=== PATIENT | female | born 1960 | race African-American/Black ===

== ENCOUNTER 2016-09-17 12:52 | Inpatient (IN) ==
[2016-09-17 13:28] LABS: Basophils % 0.4 % (0.0-0.8); Eosinophils % 0.1 % (0.00-10.9); Hematocrit 42.1 VOL% (35.7-47.0); Hemoglobin 14.1 GM/DL (12.0-16.0); Immature Granulocytes % 0.3 %; Immature Granulocytes Absolute 0.03 #; Lymphocytes # 1.1 10*3/uL (1.4-4.0); Lymphocytes % 11.2 % (21.3-54.2); Mean Corpuscular HGB Conc 33.5 GM/DL (32-36); Mean Corpuscular Hemoglobin 31 PG (27-34); Mean Corpuscular Volume 93.6 FL (87-102); Mean Platelet Volume 8.7 FL (9.6-12.0); Monocytes # 0.5 10*3/uL (0.11-0.8); Monocytes % 5.4 % (1.7-12.7); Neutrophils % 82.6 % (38.7-73.9); Platelet Count 206 T/CUMM (130-400); Red Cell Distribution Width 13.8 % (9.3-17.3); White Blood Count 9.7 T/CUMM (4-12)
--- NOTE | 2016-09-17 13:29 | CT Report ---
CT head/brain wo con Indication: Right-sided paralysis. CT BRAIN WITHOUT CONTRAST DLP: 998 mGy*cm Comparison: None. Date of admission: 09/17/2016. Technique: Axial noncontrast CT images of the brain were obtained. Findings: Focal hypodensity within the region of the left thalamus and loss of leyva-white junction of the left caudate nucleus and internal capsule noted. Cortical leyva-white junction is maintained. No acute hemorrhage. No mass or mass effect. Right basal ganglia structures are well maintained. Visualized sinuses are clear. No destructive bone lesion. Impression: Acute to early subacute infarct left caudate nucleus, internal capsule and left thalamus. No hemorrhage. No significant mass effect. Critical test results discussed with Dr. Ashton at 1325 hours today. PROCEDURE INTERPRETED AT [facility] DEPARTMENT OF RADIOLOGY Final Report Signed by: Morgan Beck M.D.
[2016-09-17] MEDS ORDERED: ENOXAPARIN 80 MG/0.8 ML SYRINGE SUBCUT STA (13:35)
[2016-09-17] MEDS ORDERED: ASPIRIN 300 MG SUPP RECTAL STA (13:35)
[2016-09-17 13:38] LABS: Apearance,Urine CLEAR (Clear); Bilirubin,Urine Negative (Negative); Blood, Urine Moderate mg/dL (Negative); Glucose,Urine (UA) Negative (Negative); Ketones,Urine Negative (Negative); Mucus,Urine Occasional /LPF (Occasional); Nitrite,Urine Negative (Negative); Protein,Urine Negative; RBC,Urine 23 /HPF (0-4); Squamous Epithelial Cell,Urine Occasional /HPF (0-10); Urine Color Yellow (Yellow); Urine Specific Gravity 1.015 (1.001-1.035); Urine Urobilinogen < 2.0 EU/DL (0.2-1.0); WBC,Urine 1 /HPF (0-6)
--- NOTE | 2016-09-17 13:38 | Emergency Department Note ---
Jermaine Sullivan Brittany, am scribing for, and in the presence of, Jaycob Ashton MD 13: 29. Daisha Sullivan James D, MD, personally performed the services described in this documentation, ascribed by Lara Dean in my presence, and it is both accurate and complete [id number] . Arrival - Arrival Chief Complaint: Neuro Stated Complaint: possible stroke ED Nursing Triage Note: reports disorientation and not moving right arm since he came home from work one hour ago. pt wont answer questions in triage. slurring speech. right side facial droop. glucose in triage is 79. Mode of Arrival: Wheelchair Limitations: No Limitations Source: Patient, Significant other, RN Notes Reviewed Time Seen by Provider: 09/17/16 13:15 - History of Present Illness HPI Narrative: This is a 56 y/o black female, who presents to the ED for further neurological evaluation. Her reports pt's Last Known Well Time was at 0800 this morning. He reports he returned this morning for lunch and found pt to be confused. Her states pt was able to make it to the front door. He states he noticed she had a shower while at home, but he is able to say what time this occurred. Her states pt walked to the car, but was weaker on the right side of the body. He states pt was talking to him on the way here, but the speech was slurred. No complaints/pain in the ED at this time. Pt denies a PMHx. Pt denies a surgical Hx. Pt denies a family medical Hx. Pt is a current every day smoker, but denies the use of alcohol and street drugs. Onset (ago): hour(s) (Started 0800 this orning) Consistency: constant Severity: severe Quality: other Date of Last Menstrual Period: menopause Allergies/Adverse Reactions: Allergies Allergy/AdvReac Type Severity Reaction Status Date / Time No Known Allergies Allergy Verified 09/17/16 13:10 Home Medications: Home Medications Medication Instructions Recorded Confirmed Type No Known Home Medications [No 09/17/16 09/17/16 History Known Home Medications] Review of System - Review of System 12 point system: reviewed and no additional remarkable complaints except as stated - Review of System Neurological: Present: weakness (Weakness to the right side of the body), confusion, other (Slurred Speech) Medical,Surgical,& Family Hx - Social History Smoking Status: Current every day smoker Exam Vital Signs: Vital Signs Temperature 97.6 F 09/17/16 12:55 Pulse Rate 72 09/17/16 12:55 Respiratory Rate 18 09/17/16 12:55 Blood Pressure 172/106 09/17/16 12:55 O2 Sat by Pulse Oximetry 96 09/17/16 12:55 GENERAL: This is a well-nourished well-developed black female acutely ill- appearing, in no apparent distress. VITAL SIGNS: Reviewed HEENT: Head is atraumatic and normocephalic. Pupils are equal round react to light. Extraocular movements are intact. Oropharynx is benign with moist mucous membranes. Gag reflex is present. NECK: Neck is soft and supple without tenderness. There are no masses. There is no lymphadenopathy. LUNGS: Lungs are clear to auscultation. Chest rises symmetrically. There is no chest wall tenderness. CV: Heart is regular rate and rhythm without murmurs rubs or gallops. ABDOMEN: Abdomen is soft, nontender to palpation. There are no abdominal abnormal masses palpated. There is no organomegaly. Bowel sounds are present and active. SKIN: Skin is warm and dry. No rash. EXTREMITIES: Patient has full range of motion without tenderness. There is no pedal edema. NEUROLOGIC: Arousable to vocal stimulus. Gaze preference to the left. Cranial nerves II through XII are intact with the exception of right facial weakness which is central. Motor is 5 over 5 in left arm and left leg, 0-1/5 in right arm and right leg. Babinski is present on the right. Deep tendon reflexes are 2+ to 3+ on right and 2+ on the left. Course Course Narrative: Discussed at length with the regarding TPA. Patient is not a TPA treatment candidate due to length of time between last known well time and onset of symptoms. - Consultations Consultation #1: Discussed with hospitalist. Patient will be admitted to their service. Time: 13:37 Consultation #2: Discussed with Dr. Inman. Time: 13:20 Results - Labs CBC & BMP: 09/17/16 13:16 09/17/16 13:16 Lab Results: I have reviewed the patients labs Labs: Laboratory Tests 09/17/16 09/17/16 09/17/16 13:16 13:16 13:16 Urine RBC 23 Urine Opiates Screen Negative Ur Barbiturates Screen Positive H Ur Phencyclidine Scrn Negative U Amphetamine/Methamph Negative U Benzodiazepines Scrn Negative U Cocaine Metab Screen Negative U Cannabinoids Screen Negative Serum Alcohol < 15 L - EKG EKG results: interpreted by ERMD - Impressions EKG: Normal sinus rhythm with rate of 72, normal ST-T waves, normal axis. 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 Case discussed with: patient's family Disposition: Still a Patient Condition: Guarded NIH Stroke Score - Stroke Score Initial Assessment Level of Consciousness: Drowsy Level of Consciousness Questions: Both Incorrect Level of Consciousness Commands: Obeys One Correctly Best Gaze: Forced Deviation Visual Gomez: No Visual Loss Facial Palsy: Complete Motor - Right Arm: No Effort Against Hoopa Motor - Left Arm: No Drift Motor - Right Leg: No Effort Against Hoopa Motor - Left Leg: No Drift Limb Ataxia: Absent Sensory (Pin Prick): Partial Loss Best Language: Mute Dysarthria: Near Unintelligible or Worse Extinction / Inattention (Neglect): Partial Neglect NIH Stroke Score: 22
[2016-09-17] MEDS ORDERED: ENOXAPARIN 80 MG/0.8 ML SYRINGE SUBCUT ONE (13:39)
[2016-09-17] MEDS ORDERED: ASPIRIN 300 MG SUPP RECTAL ONE (13:39)
[2016-09-17 13:41] LABS: INR 0.9; PT Patient Result 9.9 SECS; Partial Thromboplastin Time 27.6 SECS (0-40)
[2016-09-17 13:44] LABS: Barbiturates Screen,Urine Positive (Negative); Benzodiazepines Screen,Urine Negative (Negative); Cannabinoid Screen,Urine Negative (Negative); Opiate Screen,Urine Negative (Negative); Phencyclidine Screen,Urine Negative (Negative)
[2016-09-17 14:03] LABS: Alanine Aminotransferase 24 U/L (13-56); Albumin 3.9 G/DL (3.4-5.0); Alkaline Phosphatase 88 U/L (45-117); Aspartate Amino Transferase 22 U/L (0-37); Calcium 8.8 MG/DL (8.5-10.1); Total Protein 6.9 G/DL (6.4-8.3)
[2016-09-17 14:04] LABS: Blood Urea Nitrogen 11 MG/DL (7-18); Glucose 85 MG/DL (74-106); Osmolality,Calculated 289.4 MOS/KG (273-304); Potassium 4.3 MMOL/L (3.5-5.1); Sodium 147 MMOL/L (136-145); Troponin I Only < 0.015 NG/ML (0.00-0.045)
[2016-09-17] MEDS ORDERED: LABETALOL 20 MG/4 ML SYRINGE IV PRN (14:19)
--- NOTE | 2016-09-17 14:23 | EKG Report ---
Stationary ECG Study [facility] ER Test Date: 09/17/2016 2:20:34 PM Pat Name: AICHA ROLON Department: Room: Gender: F Sluice Tender: : 1960 Requested by: Jaycob Lau Order Number: [id number] Reading MD: BRIDGETT MONTERO Intervals [place] Rate: 72 P: -38 UT: 189 QRS: 63 QRSD: 87 T: 25 QT: 407 QTc: 431 Interpretive Statements SINUS RHYTHM NON-SPECIFIC ST-T ABNORMALITIES Electronically Signed On 09-18-16 12:19:15 CDT by BRIDGETT MONTERO [email or web address]
--- NOTE | 2016-09-17 14:40 | XRay Report ---
XR chest 1V portable Indication: Cardiomegaly. Chest one view: No comparison. The heart size and mediastinal contour are normal. The lungs and pleural spaces are clear. Bones are unremarkable. Impression: Negative chest. PROCEDURE INTERPRETED AT [facility] DEPARTMENT OF RADIOLOGY Final Report Signed by: Morgan Beck M.D.
[2016-09-17 14:54] LABS: Risk Ratio 3.44; VLDL CHOLESTEROL 27.4 MG/DL
--- NOTE | 2016-09-17 15:11 | Hospitalist History & Physical ---
Assessment and Plan (1) Left middle cerebral artery stroke Status: Acute Assessment and plan: MRI of brain and mra of head and neck, Consult Dr Inman, ASA, feeding tube, lipitor at night Current Visit: Yes (2) Hypertension Status: Acute Assessment and plan: monitor blood pressure Current Visit: Yes (3) ROSS (obstructive sleep apnea) Status: Acute Assessment and plan: Dr. Jimenez, makes her prone to more arrhythmia Current Visit: Yes History of Present Illness Chief complaint: slurred speech History of present illness: Ms. Dunn is a 56 year old female who presents to the ED for neurological evaluation. Her reports pt's Last Known Well Time was at 0800 this morning. He reports he returned this morning for lunch and found pt to be confused, slurring her words and having trouble walking. Patient never goes to the doctor and smokes two PPKs. Patients blood pressure running 160s systolic in the ER and has already ordered and received a aspirin suppository. Head CT shows infarct on the left internal capsule and thalamus. Patient's says she snores at night but has not reported any daily fatigue or headaches. Home Medications Medication Instructions Recorded Confirmed Type No Known Home Medications [No 09/17/16 09/17/16 History Known Home Medications] Allergies Allergy/AdvReac Type Severity Reaction Status Date / Time contrast AdvReac Severe ANAPHYLAXIS Uncoded 09/17/16 15:20 Medical,Surgical,& Family Hx - Medical History Medical History: noncontributory Psychological: History of: Depression - Surgical History Reproductive Surgeries: Surgical HX of;: Tubal Ligation - Family History Family History: Reports;: Family Heart Disease, Family Hypertension, Family Stroke Denies;: Family Diabetes - Social History Smoking Status: Current every day smoker Frequency of Alcohol Use: Occasionally Type of Drug Use: None Marital Status: Lives With:: Spouse Functional capacity: independent ambulation ROS unobtainable: due to mental status Review of systems: due to stroke. answered all questions for me - Constitutional Constitutional: Absent: fatigue, fever(s), headache(s) - EENT Eyes: Absent: blurry vision, diplopia Ears: Absent: decreased hearing, ear discharge Nose, mouth and throat: Absent: headache(s), sore throat - Cardiovascular Cardiovascular: Absent: chest pain at rest, dyspnea - Respiratory Respiratory: Absent: dyspnea, dyspnea on exertion - Gastrointestinal Gastrointestinal: Absent: constipation, diarrhea, nausea, vomiting - Genitourinary Genitourinary: Absent: difficulty urinating, dysuria - Musculoskeletal Musculoskeletal: Absent: arthralgias, back pain - Neurological Neurological: Present: confusion. Absent: headache(s), syncope - Psychiatric Psychiatric: Present: depression. Absent: anxiety - Endocrine Endocrine: Absent: cold intolerance, heat intolerance - Hematologic/Lymphatic Hematologic/Lymphatic: Absent: easy bleeding, easy bruising Exam - Constitutional Vitals: Period Temp Pulse Resp BP Sys/Soria Pulse Ox Last 24 Hr 97.6 F-97.6 F 72-72 18-18 172-172/106-106 96 General appearance: normal weight, mild distress - Head Head exam: Present: normal inspection, normocephalic - Eye Eye exam: Present: EOMI. Absent: scleral icterus Pupils: Present: NIKUNJ, normal accommodation - ENT ENT exam: Present: normal exam, normal external ear exam - Neck Neck exam: Absent: lymphadenopathy, thyromegaly - Respiratory Respiratory exam: Present: clear to auscultation bilaterally. Absent: rhonchi, wheezes - Cardiovascular Cardiovascular exam: Present: regular rate and rhythm. Absent: systolic murmur - GI/Abdominal GI/Abdominal exam: Present: normal bowel sounds, soft. Absent: tenderness - Extremities Exam Extremities exam: Present: normal inspection, normal capillary refill - Neurological Exam Neurological exam: Present: altered, CN II-XII intact, motor sensory deficit ( right sided weakness, ), reflexes normal. Absent: oriented X3 - Psychiatric Psychiatric exam: Present: depressed, flat affect - Skin Skin exam: Present: normal color, warm Results - Labs CBC & BMP: 09/17/16 13:16 09/17/16 13:16 Lab Results: I have reviewed the past 24 hour labs - EKG EKG shows: sinus rhythm - Diagnostic Findings Procedure: Chest x-ray: report reviewed by me (nothing acute ), CT: report reviewed by me (head left internal capsule and thalamus infarct ) Quality Measures - Stroke Symptom Onset Unknown: Yes
--- NOTE | 2016-09-17 15:52 | Ultrasound Report ---
History CVA, right-sided weakness Grayscale, spectral Doppler, and color flow analysis performed and interpreted There is a mild amount of primarily soft plaque in both proximal internal carotid arteries Maximum systolic velocities are 96 on the right and 86 in the left Peak systolic ratios are 1.1 the right and 1.3 on the left There is antegrade flow in both vertebral arteries Impression: Mild amount of plaque with less than 50% diameter stenoses bilaterally by NASCET criteria PROCEDURE INTERPRETED AT [facility] DEPARTMENT OF RADIOLOGY Final Report Signed by: Dr. Tamela Fried
--- NOTE | 2016-09-17 18:15 | Magnetic Resonance Report ---
History is CVA, right-sided weakness Pre and post contrast, 20 cc Dotarem utilized The ventricles are normal in size. There are mild patchy T2 signal abnormalities in the white matter. There is a moderate sized area of very minimal T2 signal centered around the sylvian fissure on the left where there is some mildly increased signal on diffusion images. There is also some mild patchy signal on diffusion images throughout the left basal ganglia No acute intracranial hemorrhage or mass effects seen Chronic lacunae in the left basal ganglia present. Following contrast, no unusual enhancement seen Impression: 1. Acute left MCA territory ischemia superimposed on mild chronic microvascular ischemic changes PROCEDURE INTERPRETED AT [facility] DEPARTMENT OF RADIOLOGY Final Report Signed by: Dr. Tamela Fried
--- NOTE | 2016-09-17 18:20 | Magnetic Resonance Report ---
History CVA, right-sided weakness Pre and post contrast, 20 cc utilized 3-D ixpu-wy-qecnwt images of the carotid bifurcations and postcontrast MRA images from the base of the skull through the aortic arch obtained Motion artifact on the [id number]-kd-[id number] images at the bifurcations markedly limits visualization however these areas are well visualized and the postcontrast study There is a normal configuration of the origins of the great vessels. Both vertebral arteries are patent. There is minimal plaque in the proximal ICA on the right with ALS and 20% maximum diameter stenosis There is a mild amount of plaque in the proximal ICA on the left with a maximum 20% diameter stenosis. There is mildly irregular diminished flow throughout an elongated segment of the visualized cervical ICA on the right Impression: 1. Minimal plaque with no significant stenosis in the proximal right ICA 2. Diffusely irregular flow throughout the visualized cervical ICA on the left some of which could be artifactual. Underlying fibromuscular dysplasia or diffuse plaque could easily be present. There is mildly more focal plaque at the ICA origin with an estimated 20% diameter stenosis. PROCEDURE INTERPRETED AT [facility] DEPARTMENT OF RADIOLOGY Final Report Signed by: Dr. Tamela Fried
--- NOTE | 2016-09-17 18:35 | Magnetic Resonance Report ---
History CVA right-sided weakness 3-D ojgr-id-chuvgb images of the [place] obtained There is good caliber flow in the basilar artery and visualized posterior cerebral arteries. There is slight relative diminished flow throughout the distal left ICA compared to the right without a more focal stenosis. There is minimal plaque in the carotid siphons without more significant stenosis There is markedly diminished flow throughout the left MCA territory. There is a relatively abrupt cut off of the left ICA at the A1 segment. There is a relatively prominent A1 segment on the right with filling of both visualized anterior cerebral arteries. There is mild suspected plaque in the visualized branches of the right MCA there is question of a 3 mm aneurysm at the right MCA trifurcation however there are several vessel loops in this area limiting visualization. Impression: 1. Abrupt occlusion of the tip of the distal ICA on the left with absent flow throughout the left MCA territory 2. Questionable 3 mm aneurysm at the right MCA trifurcation PROCEDURE INTERPRETED AT [facility] DEPARTMENT OF RADIOLOGY Final Report Signed by: Dr. Tamela Fried
[2016-09-17] MEDS: SODIUM CHLORIDE 0.9% 1,000 ML IV SCH (19:08)
[2016-09-17] MEDS: ATORVASTATIN 40 MG TABLET PO SCH (22:24)
[2016-09-18] MEDS: SODIUM CHLORIDE 0.9% 1,000 ML IV SCH ×2 (03:05→10:37)
[2016-09-18 04:43] LABS: Risk Ratio 3.49; VLDL CHOLESTEROL 38.2 MG/DL
--- NOTE | 2016-09-18 10:07 | XRay Report ---
XR chest 1V portable Indication: Placement of feeding tube. Chest/abdomen one view: Compromise view of the chest and abdomen shows a Dobbhoff feeding tube extending into the mid stomach. Impression: Dobbhoff feeding tube position as described. PROCEDURE INTERPRETED AT [facility] DEPARTMENT OF RADIOLOGY Final Report Signed by: Morgan Beck M.D.
[2016-09-18] MEDS: ASPIRIN 325 MG TABLET PO SCH (10:37)
[2016-09-18] MEDS: ENOXAPARIN 40 MG/0.4 ML SYRINGE SUBCUT SCH (13:59)
[2016-09-18] MEDS: NICOTINE 21 MG/24 HR PATCH TRANSDERM SCH (14:00)
--- NOTE | 2016-09-18 15:10 | Neurology Consult Note ---
History of Present Illness History of present illness: Ms. Dunn is a 56 year old right-handed -Swiss lady with past medical history significant for hypertension, ROSS who presents to the ED for neurological evaluation. Her reports pt's Last Known Well Time was at 0800 yesterday morning. He reports he returned yesterday morning for lunch and found pt to be confused, slurring her words and having trouble walking. Patient never goes to the doctor and smokes two packs per day and drinks alcohol. Patients blood pressure running 160s systolic in the ER and has already ordered and received a aspirin suppository. Head CT shows infarct on the left internal capsule and thalamus. Patient's says she snores at night but has not reported any daily fatigue or headaches. MRI of the brain revealed left MCA distribution acute infarct. Home Medications Medication Instructions Recorded Confirmed Type No Known Home Medications [No 09/17/16 09/17/16 History Known Home Medications] Allergies Allergy/AdvReac Type Severity Reaction Status Date / Time contrast AdvReac Severe ANAPHYLAXIS Uncoded 09/17/16 15:20 ROS unobtainable: due to mental status Medical,Surgical,& Family Hx - Medical History Psychological: History of: Depression - Surgical History Reproductive Surgeries: Surgical HX of;: Tubal Ligation - Family History Family History: Reports;: Family Heart Disease, Family Hypertension, Family Stroke Denies;: Family Diabetes - Social History Smoking Status: Current every day smoker Frequency of Alcohol Use: Occasionally Type of Drug Use: None Exam - Constitutional Vitals: Period Temp Pulse Resp BP Sys/Soria Pulse Ox Last 24 Hr 97.7 F-99.1 F 63-94 16-20 160-191/81-97 95-100 Exam: GENERAL: Patient is in no acute distress. NECK: Neck is supple. There is no JVD. No carotid bruits present. No thyroid masses. CVS: First and second heart sounds are normal. There is no S3 present. Regular rate and rhythm. RESPIRATORY: Lungs are clear to auscultation without any rales or rhonchi. ABDOMEN: Soft and non-tender. Bowel sounds are present. There is no hepatosplenomegaly. EXT: There is no palpable edema. Peripheral pulses are present. Skin: No rashes Central Nervous system: General: Sleepy but arousable Speech:Non- Fluent Comprehension: Impaired Facial expressions: Normal Cranial Nerves: Pupils are sluggish but reactive. Doll's head eye movements are positive. Right central facial weakness Motor: Bulk and Tone is normal. Strength in the right 0/5 Strength in the left 5/5 Sensory: Cannot be assessed Reflexes: 1+ and symmetrical Cerebellar function: Normal finger to nose and heel to arcos testing. Toes: Right Babinski positive Gait: Not tested Results - Labs CBC & BMP: 09/17/16 13:16 09/17/16 13:16 Assessment and Plan (1) Left middle cerebral artery stroke Status: Acute Assessment and plan: Continue aspirin and Lovenox Continue Lipitor Echocardiogram if it has not been already PT OT and ST Current Visit: Yes (2) Hypertension Status: Acute Assessment and plan: Continue current medications. Check vitals per routine Current Visit: Yes Specialty Discharge - Follow Up or Referrals
--- NOTE | 2016-09-18 16:13 | Hospitalist Progress Note ---
Assessment and Plan (1) Left middle cerebral artery stroke Status: Acute Assessment and plan: Dr. Inman has seen patient and want to cont asa, pt ot and speech, distal occlusion of the left ICA will have Dr. Castillo review Current Visit: Yes (2) Hypertension Status: Acute Assessment and plan: losartan 25 mg at bedtime Current Visit: Yes (3) ROSS (obstructive sleep apnea) Status: Acute Assessment and plan: Dr. Jimenez to see Current Visit: Yes (4) Hyperlipidemia Status: Acute Assessment and plan: lipitor to bedtime Current Visit: Yes Hospitalist: Subjective Interval history: Patient is neglecting her right side a little bit more today she is not moving her right leg spontaneously. Sisters are in room and were helpful with information. They really want her to get a nicotine patch and we feel that we need to restrain her left arm from pulling out her feeding tube. Dr. Jesus Manuel Suero is seen her today but did not indicate whether he would accept her over at [facility]. I want to be very aggressive with her because she is so young. Patient is not safe to swallow at this point. We will have the dietitian start tube feeding. Patient not insured, will ask for danitza. Exam - Constitutional Vitals: Period Temp Pulse Resp BP Sys/Soria Pulse Ox Last 24 Hr 97.7 F-99.1 F 63-93 16-20 160-191/81-89 95-100 Exam: Heart Rate-[RRR] Lungs-[CTAB] GI-[+bs soft, NT] Ext-[no edema] Neuro [right-sided facial droop, still unable to talk, right side total paralysis, eyes deviated to the left but she is trying to talk to me psych [hard to assess due to severe stroke] General [no acute distress] Results - Labs CBC & BMP: 09/17/16 13:16 09/17/16 13:16 Lab Results: I have reviewed the past 24 hour labs - EKG EKG shows: sinus rhythm - Diagnostic Findings Procedure: MRI: report reviewed by me (left mca stroke, diffuse irregular plaque but less than 20% stenosis. Abrupt occlusion at the tip of the distal ICA on the left with absent flow throughout the left MCA territory. 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
[2016-09-18] MEDS ORDERED: LOSARTAN 25 MG TABLET PO SCH (21:00)
[2016-09-18] MEDS: ATORVASTATIN 40 MG TABLET PO SCH (22:25)
[2016-09-19 06:44] LABS: Magnesium 1.9 MG/DL (1.8-2.4); Osmolality,Calculated 291.7 MOS/KG (273-304); Phosphorous 2.5 MG/DL (2.5-4.9); Potassium 3.2 MMOL/L (3.5-5.1)
[2016-09-19] MEDS: ASPIRIN 325 MG TABLET PO SCH (11:38)
[2016-09-19] MEDS: NICOTINE 21 MG/24 HR PATCH TRANSDERM SCH (12:02)
--- NOTE | 2016-09-19 13:41 | Hospitalist Progress Note ---
Assessment and Plan (1) Left middle cerebral artery stroke Status: Acute Assessment and plan: Dr. Inman and Dr. Obrien has reviewed the MRA film continue aspirin, DVT prophylaxis Lovenox, PT OT and speech. Trying to find patient rehab. Current Visit: Yes (2) Hypertension Status: Acute Assessment and plan: advance losartan to 25 mg po bid Current Visit: Yes (3) ROSS (obstructive sleep apnea) Status: Acute Assessment and plan: Dr. Jimenez still has not seen patient Current Visit: Yes (4) Hyperlipidemia Status: Acute Assessment and plan: cont lipitor to bedtime Current Visit: Yes Hospitalist: Subjective Interval history: I have spoken personally with Dr. Stover and Vin from case management because I feel this patient needs aggressive rehab. [facility] turned her down for rehab. They have personally spoken with Dr. Inman. Dr. Castillo has reviewed her MRA films and does not feel that acute intervention at this point is warranted. Once patient is 4-6 weeks out from the stroke intervention may be considered at this point. Exam - Constitutional Vitals: Period Temp Pulse Resp BP Sys/Soria Pulse Ox Last 24 Hr 97.4 F-98.5 F 67-109 18-22 160-180/70-86 92-95 Exam: Heart Rate-[RRR] Lungs-[CTAB] GI-[+bs soft, NT] Ext-[no edema] Neuro [right-sided facial droop, still unable to talk, right side total paralysis, eyes deviated to the left but tries to move the midline at times more alert than yesterday psych [depressed mood and affect] General [no acute distress] Results - Labs CBC & BMP: 09/17/16 13:16 09/19/16 04:58 Lab Results: I have reviewed the past 24 hour labs - Diagnostic Findings Procedure: Chest x-ray: report reviewed by me (Feeding tube in the right place) Quality Measures - Stroke Symptom Onset Unknown: Yes Specialty Discharge - Follow Up or Referrals
[2016-09-19] MEDS ORDERED: POTASSIUM CHLORIDE 20 MEQ/15 ML UDCUP PER TUBE ONE (13:42)
--- NOTE | 2016-09-19 14:21 | Vascular Surgery Consult Note ---
History of Present Illness Chief complaint: left CVA History of present illness: Ms. Dunn is a 56 year old female Benita Dunn is a 56-year-old woman admitted with a relatively dense left MCA infarct. She has loss of speech and dense right hemiparesis. Ultrasound does not indicate significant carotid stenosis of either side but MRA shows some irregular flow around the left internal carotid artery at its origin. On reviewing of the MRA there is almost a ridge like plaque that I can see but certainly this is not a satisfactory picture due to it being an MRA. There also on MRI is appears to be an occlusion of the distal internal carotid artery and intracerebrally. I reviewed these findings with Ms. Dunn and her family explained what is involved with the carotid disease and that surgery is not indicated at this time and probably not at all. I have explained that attempting to retrieve plaque or clot from the distal internal carotid artery would not impact her current stroke in a positive fashion and certainly could cause a severe reperfusion injury or intracerebral bleed. I also explained that at this time there is no indication to evaluate the internal carotid at its origin more thoroughly due to the fact that we would not recommend intervention at this time if at all. I do think that at some point in the future once she has fully recovered from the stroke to the maximum ability that a formal carotid arteriogram should be considered as she may have an irregular plaque at the origin of the internal carotid artery that could put her at risk for future embolic events. I have explained this to Mrs. Dunn and her family and that my recommendation would be to go ahead go to rehab some sort of anticoagulant or antiplatelet therapy is most appropriate and that I can see her sometime in the future to try to arrange a formal carotid arteriogram if that is felt appropriate for her. Home Medications Medication Instructions Recorded Confirmed Type No Known Home Medications [No 09/17/16 09/17/16 History Known Home Medications] Allergies Allergy/AdvReac Type Severity Reaction Status Date / Time contrast AdvReac Severe ANAPHYLAXIS Uncoded 09/17/16 15:20 Medical,Surgical,& Family Hx - Medical History Psychological: History of: Depression - Surgical History Reproductive Surgeries: Surgical HX of;: Tubal Ligation - Family History Family History: Reports;: Family Heart Disease, Family Hypertension, Family Stroke Denies;: Family Diabetes - Social History Smoking Status: Current every day smoker Frequency of Alcohol Use: Occasionally Type of Drug Use: None Exam - Constitutional Vitals: Period Temp Pulse Resp BP Sys/Soria Pulse Ox Last 24 Hr 97.4 F-98.5 F 67-109 18-22 160-180/70-86 92-95 Quality Measures - Stroke Symptom Onset Unknown: Yes Results - Labs CBC & BMP: 09/17/16 13:16 09/19/16 04:58 Specialty Discharge - Follow Up or Referrals
--- NOTE | 2016-09-19 14:48 | ECHO Report ---
Benita Dunn Exam Date: 09/19/2016 09:28 Referring Physician: Technologist: Elizabeth Malhotra Age: 56 Ht (in): 64 Wt (lb): 165 Gender: F Exam Location: [facility] Echo Indications: CVA, HTN, ROSS, hyperlidemia BP: 180 / 86 HR: 67 Rhythm: NSR Technical Quality: Good IMPRESSIONS Normal left ventricular cavity size. Mild concentric left ventricular hypertrophy with diastolic dysfunction. Left ventricular ejection fraction is estimated at 50-55 %. Normal right ventricular size. Normal right atrial size. Normal left atrial size. Mild mitral valve sclerosis. Trace mitral valve regurgitation. Mild aortic valve sclerosis. Morphologically normal tricuspid valve. Trace to mild tricuspid valve regurgitation. Tricuspid regurgitation velocities suggest a PAP of 14.3 mmHg + RAP. Morphologically normal pulmonic valve. No pericardial effusion. Normal size aortic root and proximal ascending aorta. MEASUREMENTS (Male / Female) Normal Values 2D ECHO LV Diastolic Diameter PLAX 4.3 cm 4.2 - 5.9 / 3.9 - 5.3 cm LV Systolic Diameter PLAX 3.0 cm LV Fractional Shortening PLAX 29.1 % IVS Diastolic Thickness 1.6 cm 0.6 - 1.0 / 0.6 - 0.9 cm LVPW Diastolic Thickness 1.3 cm 0.6 - 1.0 / 0.6 - 0.9 cm RV Internal Dim ED PLAX 1.8 cm Aortic Root Diameter 2.6 cm LA Systolic Diameter LX 3.0 cm 3.0 - 4.0 / 2.7 - 3.8 cm DOPPLER TR Peak Velocity 189.0 cm/s TR Peak Gradient 14.3 mmHg FINDINGS Left Ventricle Normal left ventricular cavity size. Mild concentric left ventricular hypertrophy with diastolic dysfunction. Left ventricular ejection fraction is estimated at 50-55 %. Right Ventricle Normal right ventricular size. Right Atrium Normal right atrial size. Left Atrium Normal left atrial size. Mitral Valve Mild mitral valve sclerosis. Trace mitral valve regurgitation. Aortic Valve Mild aortic valve sclerosis. Tricuspid Valve Morphologically normal tricuspid valve. Trace to mild tricuspid valve regurgitation. Tricuspid regurgitation velocities suggest a PAP of 14.3 mmHg + RAP. Pulmonic Valve Morphologically normal pulmonic valve. Pericardium No pericardial effusion. Aorta Normal size aortic root and proximal ascending aorta. Tyrese Weeks MD (Electronically Signed) Final Date: 19 September 2016 14:47
[2016-09-19] MEDS: ENOXAPARIN 40 MG/0.4 ML SYRINGE SUBCUT SCH (16:17)
[2016-09-19] MEDS: ONDANSETRON 4 MG/2 ML VIAL IV PRN ×2 (16:27→22:33)
--- NOTE | 2016-09-19 16:31 | Neurology Progress Note ---
Neurology - PN : Subjective Interval history: Patient seems to be doing slightly better at this time. She is awake. Trying to follow simple commands on the left side. She has dense right hemiplegia. She has neglect in the right side. She has a right homonymous hemianopsia Exam (Progress Note) - Constitutional Vitals: Period Temp Pulse Resp BP Sys/Soria Pulse Ox Last 24 Hr 96.0 F-98.5 F 67-92 18-22 161-181/76-86 92-95 Exam: GENERAL: Patient is in no acute distress. NECK: Neck is supple. There is no JVD. No carotid bruits present. No thyroid masses. CVS: First and second heart sounds are normal. There is no S3 present. Regular rate and rhythm. RESPIRATORY: Lungs are clear to auscultation without any rales or rhonchi. ABDOMEN: Soft and non-tender. Bowel sounds are present. There is no hepatosplenomegaly. EXT: There is no palpable edema. Peripheral pulses are present. Skin: No rashes Central Nervous system: General: Sleepy but arousable Speech:Non- Fluent Comprehension: Impaired Facial expressions: Normal Cranial Nerves: Pupils are sluggish but reactive. Doll's head eye movements are positive. Right central facial weakness. Right homonymous hemianopsia Motor: Bulk and Tone is normal. Strength in the right 0/5 Strength in the left 5/5 Sensory: Cannot be assessed Reflexes: 1+ and symmetrical Cerebellar function: Normal finger to nose and heel to arcos testing. Toes: Right Babinski positive Gait: Not tested Results - Labs CBC & BMP: 09/17/16 13:16 09/19/16 04:58 Assessment and Plan (1) Left middle cerebral artery stroke Status: Acute Assessment and plan: Continue aspirin and Lovenox Continue Lipitor PT OT and ST Patient is not a good candidate for acute rehabilitation at this time. Agree with swing bed placement. Once patient is a little more stronger then will be more than happy to take her to rehab. Hold off to PEG tube placement at this time. I am hoping that in the next couple of days she will be able to swallow Current Visit: Yes (2) Hypertension Status: Acute Assessment and plan: Continue current medications. Check vitals per routine Current Visit: Yes Quality Measures - Stroke Symptom Onset Unknown: Yes Specialty Discharge - Follow Up or Referrals
[2016-09-19] MEDS: LOSARTAN 25 MG TABLET PO SCH ×2 (21:30→22:30)
[2016-09-19] MEDS: ATORVASTATIN 40 MG TABLET PO SCH ×2 (21:30→22:30)
[2016-09-20] MEDS: ONDANSETRON 4 MG/2 ML VIAL IV PRN ×3 (09:26→23:12)
[2016-09-20] MEDS: ASPIRIN 325 MG TABLET PO SCH (10:11)
[2016-09-20] MEDS: LOSARTAN 25 MG TABLET PO SCH ×2 (10:11→23:14)
[2016-09-20] MEDS: NICOTINE 21 MG/24 HR PATCH TRANSDERM SCH (12:04)
--- NOTE | 2016-09-20 14:34 | Hospitalist Progress Note ---
Assessment and Plan (1) Left middle cerebral artery stroke Status: Acute Assessment and plan: Patient will hopefully go to swing bed tomorrow then to [facility] when more alert. Repeat head ct Current Visit: Yes (2) Hypertension Status: Acute Assessment and plan: past 72 hours, cont losartan and added norvasc this morning Current Visit: Yes (3) ROSS (obstructive sleep apnea) Status: Acute Assessment and plan: Dr. Jimenez will see patient today. will get ABG Current Visit: Yes (4) Hyperlipidemia Status: Acute Assessment and plan: cont lipitor to bedtime Current Visit: Yes Hospitalist: Subjective Interval history: Patient still sleepy but was alert enough to sing happy birthday to me this afternoon which I was happy about. Dr. Inman agrees to hold off on a PEG tube as we think she will improve. Hopefully she will be taken to swing bed tomorrow and continue rehab. Family has a call with Medicaid today. Exam - Constitutional Vitals: Period Temp Pulse Resp BP Sys/Soria Pulse Ox Last 24 Hr 96.0 F-98.7 F 69-80 15-22 181-193/86-94 91-95 Exam: Heart Rate-[RRR] Lungs-[CTAB] GI-[+bs soft, NT] Ext-[no edema] Neuro [right-sided facial droop, right side total paralysis, eyes moving toward midline, sang happy birthday to me today psych [hard to assess due to severity of stroke] General [no acute distress] Results - Labs CBC & BMP: 09/17/16 13:16 09/19/16 04:58 Lab Results: I have reviewed the past 24 hour labs - Diagnostic Findings Procedure: Ultrasound: report reviewed by me (echo ef 55%) Quality Measures - Stroke Symptom Onset Unknown: Yes Specialty Discharge - Follow Up or Referrals
[2016-09-20 15:00] LABS: ABG Base Excess 1.7 MMOL/L (-2.5-2.5); ABG HCO3 25.9 MMOL/L (20-26); ABG PCO2 35.9 MM HG (35-48); ABG PH 7.455 (7.35-7.45); ABG PO2 76.3 MM HG (80-95); ABG TCO2 21.5 MMOL/L (23-27); Allen Test Positive; Pt O2 Delivery Device Room Air
--- NOTE | 2016-09-20 15:31 | Neurology Progress Note ---
Neurology - PN : Subjective Interval history: Patient seems to be improving. No new problems reported. Exam (Progress Note) - Constitutional Vitals: Period Temp Pulse Resp BP Sys/Soria Pulse Ox Last 24 Hr 96.0 F-98.7 F 69-80 15-22 181-193/86-94 91-95 Exam: GENERAL: Patient is in no acute distress. NECK: Neck is supple. There is no JVD. No carotid bruits present. No thyroid masses. CVS: First and second heart sounds are normal. There is no S3 present. Regular rate and rhythm. RESPIRATORY: Lungs are clear to auscultation without any rales or rhonchi. ABDOMEN: Soft and non-tender. Bowel sounds are present. There is no hepatosplenomegaly. EXT: There is no palpable edema. Peripheral pulses are present. Skin: No rashes Central Nervous system: General: Slightly more alert and awake Speech:Non- Fluent Comprehension: Impaired Facial expressions: Normal Cranial Nerves: Pupils are sluggish but reactive. Doll's head eye movements are positive. Right central facial weakness. Right homonymous hemianopsia Motor: Bulk and Tone is normal. Strength in the right 0/5 Strength in the left 5/5 Sensory: Cannot be assessed Reflexes: 1+ and symmetrical Cerebellar function: Normal finger to nose and heel to arcos testing. Toes: Right Babinski positive Gait: Not tested Results - Labs CBC & BMP: 09/17/16 13:16 09/19/16 04:58 Assessment and Plan (1) Left middle cerebral artery stroke Status: Acute Assessment and plan: Continue aspirin and Lovenox Continue Lipitor PT OT and ST Patient is not a good candidate for acute rehabilitation at this time. Agree with swing bed placement. Once patient is a little more stronger then will be more than happy to take her to rehab. Continue to hold off to PEG tube placement at this time. Current Visit: Yes (2) Hypertension Status: Acute Assessment and plan: Continue current medications. Check vitals per routine Current Visit: Yes Quality Measures - Stroke Symptom Onset Unknown: Yes Specialty Discharge - Follow Up or Referrals
--- NOTE | 2016-09-20 15:31 | CT Report ---
CT head/brain wo con INDICATION: Recent stroke, difficult to arouse, sleepy The total DLP is 3036 mGy*cm. COMPARISON: MRI and noncontrast CT head dated 09/17/2016 Technique: Serial axial tomographic images of the brain were obtained without the use of intravenous contrast. Dose reduction: This CT exam was performed using one or more of the following dose reduction techniques: Automated exposure control, automated adjustment of the mA and/or KV according to patient size, or use of iterative reconstruction technique. Findings: There is a prominent area of hypodensity within the left MCA distribution, most compatible with recent MCA distribution infarct. There is mild surrounding vasogenic edema and parenchymal hypodensity with no significant midline shift although there is mass effect and effacement of the left lateral ventricle. There is no evidence of hemorrhagic transformation. No abnormal extra-axial fluid collections or acute blood products are identified. The basilar cisterns remain patent. There are prominent areas of periventricular white matter hypodensity which are nonspecific but favored to represent sequela of chronic microvascular ischemia. Minimal right sphenoid sinus mucosal thickening/opacification. Otherwise, the visualized paranasal sinuses, mastoid air cells and middle ear cavities are predominantly clear. The included orbits and their contents appear within normal limits. The visualized osseous structures and overlying soft tissues of the skull and face demonstrate no acute abnormality. IMPRESSION: Findings consistent with large left MCA distribution infarct with mild mass effect upon the left lateral ventricle but no significant midline shift. No evidence of interval hemorrhagic transformation or other significant interval change. Chronic microvascular changes and atrophy again noted. PROCEDURE INTERPRETED AT [facility] DEPARTMENT OF RADIOLOGY Final Report Signed by: Akin Eugene
--- NOTE | 2016-09-20 15:55 | Sleep Medicine Consult ---
Assessment and Plan (1) ROSS (obstructive sleep apnea) Status: Acute Assessment and plan: It is possible that she does have obstructive sleep apnea based on her history of snoring, hypertension, and recent stroke. Her recent stroke certainly may increase her risk for sleep apnea. We will see if we can obtain HST evaluation and based on insurance requirements and findings, determine if outpatient polysomnography will be indicated. Current Visit: Yes (2) Hypertension Status: Acute Assessment and plan: The prevalence rate for obstructive sleep apnea patients with hypertension is 35 %. That rate can be as high as 80% in patients who require 4 or more medications for blood pressure control. Current Visit: Yes (3) Left middle cerebral artery stroke Status: Acute Assessment and plan: Significant percentage of patients who present with stroke have underlying sleep apnea. Evaluating and treating underlying sleep apnea may decrease risk for further strokes. Current Visit: Yes History of Present Illness Chief complaint: Sleep apnea History of present illness: Ms. Dunn is a 56 year old female admitted with a large left middle cerebral arterial stroke. During the course of her evaluation, she has had daytime fatigue and somnolence but on talking with her and sister, she usually stays up all night and sleeps during the day. She has been quite alert and communicative at other times. She does have a history of snoring but is never been told that she stops breathing during her sleep. There is never been any complaints of any significant abnormal difficulty with sleep. 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 She usually gets awake about 2 PM each day and is quite alert. Home Medications Medication Instructions Recorded Confirmed Type No Known Home Medications [No 09/17/16 09/17/16 History Known Home Medications] Allergies Allergy/AdvReac Type Severity Reaction Status Date / Time contrast AdvReac Severe ANAPHYLAXIS Uncoded 09/17/16 15:20 Review of systems: Otherwise unremarkable from a sleep standpoint. Exam (Pulmonay) H&P - Constitutional Vitals: Period Temp Pulse Resp BP Sys/Soria Pulse Ox Last 24 Hr 96.0 F-98.7 F 69-80 15-22 163-193/86-94 91-95 Exam: She is somnolent. Pupils equal round reactive to light and accommodation. Extraocular movements intact. Oropharynx with a class IV Mallampati exam. Neck is supple without adenopathy or thyromegaly. No supraclavicular adenopathy is noted. Chest with symmetrical breath sounds without focal wheeze , rhonchi, or rales. Cardiac exam reveals a regular rhythm without murmur or gallop. Abdomen soft nontender extremities without increased clubbing, cyanosis , or edema. Neurologically, the patient is responsive and will speak and will move her left side. Medical,Surgical,& Family Hx - Medical History Psychological: History of: Depression Neurology: History of: Cerebrovascular Accident - Surgical History Reproductive Surgeries: Surgical HX of;: Tubal Ligation - Family History Family History: Reports;: Family Heart Disease, Family Hypertension, Family Stroke Denies;: Family Diabetes - Social History Smoking Status: Current every day smoker Frequency of Alcohol Use: Occasionally Type of Drug Use: None Results - Labs CBC & BMP: 09/17/16 13:16 09/19/16 04:58 Lab Results: I have reviewed the past 24 hour labs Labs: Thyroid function studies have not been done and I would recommend that TSH be checked to exclude hypothyroidism. Quality Measures - Stroke Symptom Onset Unknown: Yes Specialty Discharge - Follow Up or Referrals
[2016-09-20] MEDS: amLODIPine 5 MG TABLET PO SCH (17:55)
[2016-09-20] MEDS: ENOXAPARIN 40 MG/0.4 ML SYRINGE SUBCUT SCH (18:14)
[2016-09-20] MEDS: ATORVASTATIN 40 MG TABLET PO SCH (23:13)
--- NOTE | 2016-09-21 08:44 | Discharge Summary ---
Hospital Course - Hospital Course Hospital Course: Ms. Dunn is a 56 year old female who presents to the ED for neurological evaluation. Her reports pt's Last Known Well Time was at 0800 this morning. Patient never goes to the doctor and smokes two PPKs. Patients blood pressure running 160s systolic in the ER. She has severe right side paralysis. Head CT shows infarct on the left internal capsule and thalamus. MRI of the brain shows a left middle cerebral artery stroke. MRA of head and neck shows diffuse irregularity at the cervical ICA with an abrupt occlusion at the tip of the distal ICA with absence of flow through the left MCA territory. 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 Dr. Castillo has reviewed the films and does not feel that acute intervention is warranted at this time but would like to see her in 4-6 weeks after the stroke stabilizes. Patient does have severe hypertension and we are slowly lowering after 72 hours of stabilization from the stroke. Dr. Inman is seen her and would like to take her to acute rehab when she is more alert and awake. [facility] is graciously accepted her for their rehab program until she becomes alert enough to participate with 3 hours of physical therapy over at acute rehab. Head CT from yesterday was obtained as she was more sleepy than I would like her to be. It does show she has a left MCA distribution infarct with mild mass-effect upon the left lateral ventricle but no significant midline shift. She should still be stable to go to [facility]. ABG pH 7.45, PCO2 35 PO2 76, bicarb 25. Total cholesterol is 220, triglycerides 191, LDL 130, HDL 63. Patient's hemoglobin A1c is 5.9. Echocardiogram showed an EF of 50-55% with left ventricular hypertrophy with diastolic dysfunction. Patient will be transferred to [facility] now on tube feeds. We are holding off placing a PEG tube as I feel that she will be able to swallow soon. Dr. Michelle Jimenez does agree the patient has obstructive sleep apnea and will need an outpatient sleep study. Holter monitor was obtained no sustained tachycardia no A. fib. - Time spent with patient Time with patient DS: Greater than 30 minutes (50 min) Diagnosis - Discharge Diagnosis (1) Left middle cerebral artery stroke Status: Acute (2) Hypertension Status: Acute (3) ROSS (obstructive sleep apnea) Status: Acute (4) Hyperlipidemia Status: Acute Specialty Discharge - Follow Up or Referrals Discharge Plan - Discharge Data Disposition: Disch To Home/Self Care Condition at Discharge: Stable Discharge Diet: other (npo ) Activity: as per physical therapy - Discharge Medications New Aspirin Tab 325 mg PO DAILY tablet Enoxaparin [Lovenox] 40 mg SUBCUT Q24H syringe Losartan [Cozaar] 25 mg PO BID tablet Nicotine 21 mg/24 Hr Patch [Nicoderm CQ 21 mg/24 hr Patch] 1 patch TRANSDERM DAILY patch amLODIPine [Norvasc] 5 mg PO DAILY tablet Atorvastatin [Lipitor] 80 mg PO BEDTIME tablet - Follow Up or Referral - Forms/Instructions Instructions: Ischemic Stroke (DC) Additional Discharge Instructions: Tube feeding is Jevity 1.5 through the care fed call newspaper deliverer. 100 mL's of water pre-and post each feeding. 30 ml proteinex Exam - Constitutional Vitals: Period Temp Pulse Resp BP Sys/Soria Pulse Ox Last 24 Hr 96.3 F-97.9 F 75-82 16-22 142-179/57-90 92-100 General appearance: normal weight, no acute distress - Respiratory Respiratory exam: Present: clear to auscultation bilaterally. Absent: rhonchi, wheezes - Cardiovascular Cardiovascular exam: Present: regular rate and rhythm - GI/Abdominal GI/Abdominal exam: Present: normal bowel sounds, soft. Absent: tenderness - Neurological Exam Neurological exam: Present: motor sensory deficit (right sided hemiparesis ) Discharge Results Procedures and tests throughout hospitalization: Pending Orders 09/24/16 04:00 Basic Metabolic Panel MOTH Magnesium MOTH Phosphorous MOTH Prealbumin MOTH 09/27/16 04:00 Basic Metabolic Panel MOTH Magnesium MOTH Phosphorous MOTH Prealbumin MOTH Labs on day of discharge: Labs from last 24 hours 09/20/16 09/20/16 14:40 08:47 Circ Anticoag PTT 27.6 ABG pH 7.455 H ABG pCO2 35.9 ABG pO2 76.3 L ABG HCO3 25.9 ABG Total CO2 21.5 L ABG O2 Saturation 96.0 ABG Base Excess 1.7 FiO2 21.00 DS: Provider Date of admission: 09/17/16 14:19 Primary care physician: . No PCP Attending physician on admission: Beatriz Doyle MD Consults: 09/17/16 14:35 Consult to Physician [CONS] Routine Comment: CVA Consulting Provider: Justin Inman Person Notified: Dr. Inman Date Notified: 09/17/16 Time Notified: 18:30 09/17/16 14:36 Consult to Pharmacy [CONS] Routine Reason for Pharmacy Consult: Adjust Meds Renal Funct 09/17/16 16:09 Consult to Sleep Center [CONS] Routine Reason for Sleep Center: Sleep Center Physician Consult Comment: ross 09/17/16 18:56 Consult to Dietitian [CONS] Routine Reason for Dietitian: Other Consult Comment: admission assessment 09/18/16 10:26 Consult to Dietitian [CONS] Routine Reason for Dietitian: TF-Initiate/Manage 09/18/16 14:57 Consult to Case Mgmt/Social Srvs [CONS] Routine Reason for Case Mgmt/Social Srvs: Other Consult Comment: Assistance with filing for Medicaid 09/18/16 16:28 Consult to Physician [CONS] Routine Comment: large left mca stroke, please review mra Consulting Provider: Ranjan Castillo Discharging clinician: Beatriz Doyle MD
[2016-09-21] MEDS: amLODIPine 5 MG TABLET PO SCH (09:46)
[2016-09-21] MEDS: ASPIRIN 325 MG TABLET PO SCH (09:46)
[2016-09-21] MEDS: LOSARTAN 25 MG TABLET PO SCH (09:46)
[2016-09-21] MEDS: NICOTINE 21 MG/24 HR PATCH TRANSDERM SCH (09:50)
[2016-09-21 10:52] VITALS: BP 143/80
== END 2016-09-21 10:45 | disposition swing bed (61) | DRG 65 ==
LOC: N.ED 12:52 → N.EDINP 14:19 → N.4E 18:27
PROVIDERS: ADMIT Internal Medicine; ATTEND Internal Medicine

== ENCOUNTER 2018-01-01 14:00 | Inpatient (IN) ==
[2018-01-01 15:03] LABS: Basophils % 0.3 % (0.0-0.8); Eosinophils # 0.1 10*3/uL (0.0-0.87); Eosinophils % 0.8 % (0.00-10.9); Hematocrit 38.6 VOL% (35.7-47.0); Immature Granulocytes % 0.2 %; Immature Granulocytes Absolute 0.01 #; Lymphocytes # 2.2 10*3/uL (1.4-4.0); Lymphocytes % 36.9 % (21.3-54.2); Mean Corpuscular HGB Conc 33.7 GM/DL (32-36); Mean Corpuscular Hemoglobin 31 PG (27-34); Mean Platelet Volume 8.9 FL (9.6-12.0); Monocytes # 0.5 10*3/uL (0.11-0.8); Monocytes % 8.3 % (1.7-12.7); Neutrophils # 3.2 10*3/uL (1.4-7.4); Neutrophils % 53.5 % (38.7-73.9); Platelet Count 183 T/CUMM (130-400); Red Blood Count 4.15 MC/CUMM (3.8-5.5); Red Cell Distribution Width 13.9 % (9.3-17.3); White Blood Count 6.1 T/CUMM (4-12)
[2018-01-01 15:27] LABS: Albumin 3.4 G/DL (3.4-5.0); Bilirubin,Total 0.4 MG/DL (0.2-1.0); Calcium 8.6 MG/DL (8.5-10.1); Osmolality,Calculated 283.1 MOS/KG (273-304); Potassium 4.2 MMOL/L (3.5-5.1); Total Protein 6.4 G/DL (6.4-8.3)
[2018-01-01] MEDS ORDERED: ONDANSETRON 4 MG/2 ML VIAL IV PRN (16:31)
[2018-01-01] MEDS ORDERED: ACETAMINOPHEN 325 MG TABLET PO PRN (16:31)
[2018-01-01 18:05] LABS: Risk Ratio 2.32; VLDL CHOLESTEROL 19.4 MG/DL
[2018-01-01] MEDS ORDERED: BACLOFEN 10 MG TABLET PO SCH (21:00)
[2018-01-01] MEDS ORDERED: ATORVASTATIN 40 MG TABLET PO SCH (21:00)
[2018-01-01] MEDS: LOSARTAN 25 MG TABLET PO SCH (22:03)
[2018-01-01] MEDS: NICOTINE 14 MG/24 HR PATCH TRANSDERM SCH (22:04)
[2018-01-02 05:36] LABS: Basophils % 0.4 % (0.0-0.8); Eosinophils # 0.1 10*3/uL (0.0-0.87); Eosinophils % 1.4 % (0.00-10.9); Hematocrit 35.8 VOL% (35.7-47.0); Hemoglobin 12.2 GM/DL (12.0-16.0); Immature Granulocytes % 0.2 %; Immature Granulocytes Absolute 0.01 #; Lymphocytes # 2.6 10*3/uL (1.4-4.0); Lymphocytes % 45.6 % (21.3-54.2); Mean Corpuscular HGB Conc 34.1 GM/DL (32-36); Mean Corpuscular Hemoglobin 31 PG (27-34); Mean Platelet Volume 8.9 FL (9.6-12.0); Monocytes # 0.5 10*3/uL (0.11-0.8); Monocytes % 7.9 % (1.7-12.7); Neutrophils # 2.5 10*3/uL (1.4-7.4); Neutrophils % 44.5 % (38.7-73.9); Platelet Count 184 T/CUMM (130-400); Red Blood Count 3.89 MC/CUMM (3.8-5.5); Red Cell Distribution Width 13.8 % (9.3-17.3); White Blood Count 5.7 T/CUMM (4-12)
[2018-01-02 06:02] LABS: Calcium 8.5 MG/DL (8.5-10.1); Osmolality,Calculated 283.1 MOS/KG (273-304); Potassium 3.7 MMOL/L (3.5-5.1)
[2018-01-02] MEDS ORDERED: PANTOPRAZOLE 40 MG TABLET PO SCH (09:00)
[2018-01-02] MEDS ORDERED: ASPIRIN 325 MG TABLET PO SCH (09:00)
[2018-01-02] MEDS: LOSARTAN 25 MG TABLET PO SCH (09:16)
[2018-01-02] MEDS: NICOTINE 14 MG/24 HR PATCH TRANSDERM SCH (09:17)
[2018-01-02 16:39] VITALS: BP 127/76
[2018-01-03] MEDS ORDERED: CLOPIDOGREL 75 MG TABLET PO SCH (09:00)
== END 2018-01-02 18:41 | disposition home or self-care (01) | DRG 65 ==
LOC: N.ED 14:00 → N.EDINP 20:11 → N.2E 21:12
PROVIDERS: ADMIT Internal Medicine Infectious Disease; ATTEND Internal Medicine Infectious Disease